=== PATIENT | male | born 1955 | race Caucasian/White ===

== ENCOUNTER → 2021-01-29 11:18 | Outpatient (REF) | payer MEDICARE, SELFPAY | LOC: ANHLAB 11:18 | PROVIDERS: Visit Provider Nurse Practitioner | DX: D03.21 Melanoma in situ of right ear and external auricular canal (principal) | CPT/HCPCS: 88305; 88342 ==

== ENCOUNTER → 2021-02-14 12:29 | Outpatient (REF) | payer MEDICARE, SELFPAY | LOC: ANHLAB 12:29 | PROVIDERS: Visit Provider Nurse Practitioner | DX: C43.21 Malignant melanoma of right ear and external auricular canal (principal); D49.2 Neoplasm of unspecified behavior of bone, soft tissue, and skin | CPT/HCPCS: 88305; 88342 ==

== ENCOUNTER → 2021-08-08 10:28 | Outpatient (REF) | payer MEDICARE, SELFPAY | LOC: ANHLAB 10:28 | PROVIDERS: Visit Provider Nurse Practitioner | DX: L57.0 Actinic keratosis (principal) | CPT/HCPCS: 88305 ==

== ENCOUNTER 2022-08-08 09:02 | Outpatient (CLI) | payer MEDICARE, SELFPAY ==
--- NOTE | ~2022-08-08 | CT_ITS ---
EXAMINATION: CT soft tissue neck w con DATE: 08/08/2022 10:10 INDICATION: Right cervical lymphadenopathy. TECHNIQUE: Computed tomography (CT) of the neck was performed with 75 mL Omnipaque-350 intravenous co ntrast. Automated exposure control and iterative reconstruction technique were employed. The dose-levi gth product was 690.22 mGy-cm. COMPARISON: None FINDINGS: Calcified left lung nodules and calcified left hilar lymph nodes are consistent with old gr anulomatous disease. There are no pathologically enlarged lymph nodes. There is 0% stenosis of the pr oximal internal carotid arteries relative to normal distal artery lumen diameters. There is mucosal t hickening in the paranasal sinuses. The mastoid air cells are normal. The orbits are normal. There is severe cervical spondylosis. IMPRESSION: 1. No cervical lymphadenopathy. Reviewed, dictated and finalized at location A. [facility]
[2022-08-08 10:00] LABS: Estimated Glomerular Filt Rate > 60
== END 2022-08-08 09:03 | disposition home or self-care (01) ==
LOC: ANHIMG 09:08
PROVIDERS: PCP Physician Assistant Medical; Visit Provider Physician Assistant Medical
DX: R59.0 Localized enlarged lymph nodes (principal)
CPT/HCPCS: 70491; Q9967

== ENCOUNTER 2022-09-02 07:00 | Outpatient (NON) | payer MEDICARE, SELFPAY | END 2022-09-02 07:01 | disposition home or self-care (01) | LOC: ANHLAB 09-03 11:51 | PROVIDERS: PCP Physician Assistant Medical; Visit Provider Nurse Practitioner | DX: L82.1 Other seborrheic keratosis (principal) | CPT/HCPCS: 88305 ==

== ENCOUNTER 2022-12-08 00:38 | Day surgery (SDC) | payer MEDICARE, SELFPAY ==
[2022-11-26 13:24] VITALS: BMI 34.4
--- NOTE | 2022-11-26 13:41 | PC.NURSE ---
Report to the Outpatient Waiting Room, entrance under the green pavilion located off [facility], at time __11:30AM on date __12/08/22 . Planned Procedure Time: ___1:30PM . Time changes happen often and if your time is changed the preop area will call you the afternoon before. - You and your visitor will be asked to self-screen and do not enter if you have any COVID symptoms. - Only one visitor is requested with a max of two and NO children visitors are allowed at this time. - The patient visitor may be requested to leave or wait in car when not with patient due to distancing restrictions. - A mask is optional within the hospital at this time. Patients may have clear liquids (water, carbonated beverages, clear teas, apple juice) until 3 hours prior to surgery with a maximum of 20 ounces. - No food from midnight until time of surgery - Infants may have breast milk until 4 hours before surgery, infant formula 6 hours prior to surgery. Take the following medications with a SIP of water the morning of surgery: ___NONE DO NOT STOP ANY OF YOUR OTHER PRESCRIPTION MEDICATIONS PRIOR TO SURGERY ?EXCEPT THE FOLLOWING Medications to discontinue per physician NONE Date to take last dose Please no make-up, nail welsh, hairspray, perfume, deodorant, or body powder the day of surgery. No jewelry (including any body piercings) or valuables the day of surgery, leave them at home. Please take a shower or bath the night before, or the morning of, surgery with an antibacterial soap. Wear comfortable, loose fitting clothing. Children are encouraged to wear pajamas. - Jewelry must be removed prior to entering the operating room. Rings and piercings that are not removed may be cut off. - The hospital will not accept responsibility for valuables. - Please leave all valuables, including medications, at home the day of surgery. If you are going home after surgery, a licensed frontload driver must drive you home. - NO public transportation without another adult if you receive anesthesia. - We recommend that an adult stay with you for 24 hours following discharge. - We also recommend that you do not drive, make important decision, drink alcoholic beverages, or take any drugs that were not prescribed by your health care provider for at least 24 hours after your discharge time. Follow any additional instructions given to you from your surgeon. If you or anyone in your household have experienced Covid symptoms in the past week, please notify your surgeon or the nurse liaison at the phone number below for possible testing. Telephone instructions given to _PATIENT___and asked if any additional questions and then verbalized understanding. Patient advised to call surgeon office or pre surgery nurse liaison [phone] if any additional questions.
[2022-12-08] VITALS (9 sets, daily range): BP systolic 98–149; BP diastolic 64–95; PULSE 59–79; RESP 12–19; TEMP 36.4–37.3; O2SAT 96–100
--- NOTE | 2022-12-08 08:37 | WPDANESEPPF ---
Anes - Initial Pre Proc Eval Procedure: Operation Date: 12/08/22 13:30 Proposed Procedures p Excisional Biopsy Right Posterior Neck Mass - Gayathri Galvan MD Date/Time: 12/08/22 08:37 Surgeon: Gayathri Galvan MD Pre Op Diagnosis: right posterior neck mass Patient Data Age: 67 Gender: M Height: 1.8 m Weight: 112 kg Allergies Allergy/AdvReac Type Severity Reaction Status Date / Time hazelnut Allergy Severe Anaphylaxis Verified 12/08/22 08:43 Home Medications Medication Instructions Recorded Confirmed Type omeprazole 20 mg capsule,delayed 20 mg PO DAILY 11/07/21 11/26/22 History release montelukast 10 mg tablet 10 mg PO QHS #90 tabs 11/21/22 11/26/22 Rx Patient hx anesthesia problems: none Family hx anesthesia problems: none Results Review: All pre-operative results and documents have been reviewed as part of the pre-operative evaluation. 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 Obesity Skin cancer screening Skin neoplasm Family History Family History (Updated 11/25/22 @ 09:47 by Ivon Mendoza) Father Cancer Social History Social History Smoking packs per day: 0.5 Smoking cigarettes per day: 10.0 Years smoked: 15 Smoking pack-years: 7.50 Smoking status: Former smoker Tobacco type: cigarettes Smoking end date: 02/28/05 Alcohol intake: current Drinks per week: 8 Substance use: never Substance use type: does not use Lack of Transportation: No Lack of Food: Never True Current Housing: I Have Housing Concerned About Future Housing: No Difficulty Paying Gas/Electric Bills: No Difficulty Paying for Meds: No Currently Unemployed: No Difficulty w/ Childcare or Family Care: No Living arrangements: alone Occupation/Education: retired Gender identity (if verbalized by the patient): Male Spiritual care concerns: No Anes - Eval Final PreProcedure Day of Procedure 12/08/22 08:37 Patient weight: obese Heart: regular rate and rhythm Lungs: clear to auscultation Airway: Mallampati scale class II Neurological: alert and oriented Last oral intake: >/= 8 hours ASA classification: III Emergent: no Anesthetic plan: proceed Anesthesia type and monitoring: general ETT and standard monitoring Results Review: All pre-operative results and documents have been reviewed as part of the pre-operative evaluation. Informed Consent: The patient's anesthetic plan and its attendant risks and benefits were discussed with the patient/family/POA. Questions were solicited and answers provided to the satisfaction of the patient/family/POA.
[2022-12-08] MEDS: LACTATED RINGERS 1,000 ML 30 ML IV CONT (11:45)
--- NOTE | 2022-12-08 12:06 | WPDHPUPDATE1 ---
History and Physical Update Update Date/Time: 12/08/22 12:06 History and Physical has been reviewed, including an updated exam of the patient. There are NO changes in the patient's condition. Risks, benefits, and alternatives have been discussed and questions answered. Patient agrees to proceed with procedure.
[2022-12-08] MEDS: ceFAZolin 2 GM/D5W 50 ML 2 GM/50 ML BAG IVPB (13:10)
[2022-12-08] MEDS: BUPIVACAINE/EPINEPHRINE 0.5% 50 ML VIAL 20 ML INFILTRATE (13:30)
--- NOTE | 2022-12-08 14:04 | P.OP_ITS ---
Procedure Note - Detailed Date of Procedure 12/08/22 Pre-op Diagnosis right neck mass Post-op Diagnosis Same Procedure Performed excisional biopsy right neck mass, most consistent with necrotic lymph node Surgeon Gayathri Galvan MD Anesthesia General and Local Indications 67-year-old male presenting to the office with a right neck mass. Patient reports the mass had been slowly enlarging over the last 4 months. Previous imaging did not show enlarged cervical lymph nodes. Findings Mass underneath the strap muscles in right neck, most consistent with necrotic appearing lymph node, measuring approximately 3 x 3 cm Description of Procedure The patient was taken to the operating room placed in the supine position. After adequate induction of general anesthesia, the patient was prepped and draped in the normal sterile fashion. A time-out was then done to verify the patient's identity, as well as the procedure being performed. Began by localizing the area in and around this mass in the right neck. I then made a incision over the mass following the lines of Langerhans. This was taken down into the subcutaneous tissue. I then was able to bluntly dissect the strap muscles off this mass, the mass was posterior to the strap muscles. This mass was noted to be a friable, necrotic appearing probable lymph node. The mass measured approximately 3 x 3 cm. I was able to excise the mass in full, in cluding careful dissection around the pedicle. Once the mass was completely excised, it was sent to pathology for further review. No other obvious pathology was noted in the right neck. The area is copiously irrigated and hemostasis was gained with Bovie cautery. I then closed the subcutaneous tissue with 3-0 Vicryl suture. The skin was closed with 4-0 Monocryl subcuticular suture. The patient was extubated in the operating room postoperatively and will be transferred to the recovery room in stable condition. Estimated Blood Loss 5 Drains No Packing No Pathology Yes Complications No immediate complications Condition Stable Disposition PACU [facility] Billing Surgery - Charge Forward: Surgery Billing
--- NOTE | 2022-12-08 14:19 | SUR.PHASEI ---
1419: Simple mask removed.
== END 2022-12-08 15:44 | disposition home or self-care (01) ==
PROVIDERS: PCP Physician Assistant Medical; Visit Provider Surgery
PROC: (CPT 38510; principal; 2022-12-08 13:30)
DX: C77.0 Secondary and unspecified malignant neoplasm of lymph nodes of head, face and neck (principal); Z85.820 Personal history of malignant melanoma of skin; K20.0 Eosinophilic esophagitis; Z87.891 Personal history of nicotine dependence; E66.9 Obesity, unspecified; Z68.33 Body mass index [BMI] 33.0-33.9, adult
CPT/HCPCS: 38510; 88304; 88342; J0690; J1100; J2250; J2405; J2704; J3010; J7120

== ENCOUNTER 2022-12-25 07:58 | Outpatient (CLI) | payer MEDICARE, SELFPAY ==
--- NOTE | ~2022-12-25 | PE_ITS ---
EXAMINATION: PET whole body melanoma DATE: 12/25/2022 09:55 INDICATION: Malignant melanoma of the right upper limb TECHNIQUE: Blood glucose level was 101 mg/dL. 9.132 mCi of 18-fluorodeoxyglucose (18-FDG) was adminis tered i.v. Low dose computed tomography (CT) images were acquired from the base of the brain to the p roximal thighs for attenuation correction and anatomic localization. Positron emission tomography (PE T) images were acquired in the same distribution beginning 54 minutes after injection. Images includi ng fused PET/CT images were reconstructed in axial, coronal, and sagittal planes. Automated exposure control technique was employed. The dose-length product was 1487.21mGy-cm. COMPARISON: None FINDINGS: Head/neck: There is symmetric increased activity in the nasal and oral cavities, palatine tonsils, parotid gland s, submandibular glands, laryngeal muscles and ocular muscles without CT correlate, likely physiolog ic. There is a small focus of increased FDG activity with maximal SUV of 6.7 along a skin invaginatio n at the right side of the base of the neck positioned along the posterior margin of the right sterno cleidomastoideus muscle reportedly at the site of a recent excisional biopsy of a 3 cm necrotic lymph node biopsy-proven for metastatic melanoma. No pathologically enlarged cervical lymphadenopathy or o ther suspicious foci of increased FDG uptake in the visualized head or neck. Chest: Small calcified nodules along the right minor fissure and at the lingula consistent with old granulom atous disease. Mild dependent atelectasis in bilateral lower lobes. No other suspicious pulmonary nod ules, pneumonia, pulmonary edema or pleural effusion. Heart size is normal. No pericardial effusion. 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 No pathologically enlarged or FDG avid thoracic lymphadenopathy. Abdomen/pelvis/proximal thighs: Physiologic renal accumulation and excretion of FDG activity in the kidneys, bladder and along portio ns of ureters. Normal degree and heterogenous pattern of increased uptake throughout the liver withou t radiologic correlate or dominant FDG avid lesion. The gallbladder, pancreas and bilateral adrenal g lands are normal. A few small splenic calcific lesions consistent with old granulomatous disease. Mil d uptake scattered throughout the bowels without radiologic correlate, also likely physiologic. Julia l appendix. No other abnormal foci of increased FDG uptake or pathologically enlarged lymphadenopathy in the abdomen, pelvis or proximal thighs. Musculoskeletal: There is a tiny focus of mild increased FDG uptake with maximal SUV of 5.1 in the soft tissues of the distal right forearm between the distal right radius and ulna which is without radiologic correlate, potentially lymphatic accumulation of extravasated activity from the site of injection at the right hand. No abnormal soft tissue masses or suspicious lytic, blastic or FDG avid bone lesions. Mild upta ke overlying the right greater trochanter consistent with trochanteric bursitis. IMPRESSION: 1. Small focus of mild increased uptake at the lateral base of the right neck at the site of resectio n of a pathology proven metastatic melanoma most likely reflecting physiologic response to the excisi onal biopsy. Would recommend continued clinical and/or radiologic follow-up to exclude residual disea se. No other lesions suspicious for metastatic disease. Reviewed, dictated and finalized at location A. IMPRESSION: 1. Small focus of mild increased uptake at the lateral base of the right neck a t the site of resection of a pathology proven metastatic melanoma most likely r eflecting physiologic response to the excisional biopsy. Would jim
[2022-12-25 08:20] LABS: Glucose Point of Care 101 mg/dl (65-105)
== END 2022-12-25 07:59 | disposition home or self-care (01) ==
PROVIDERS: PCP Physician Assistant Medical; Visit Provider Surgery
DX: C43.61 Malignant melanoma of right upper limb, including shoulder (principal); C43.9 Malignant melanoma of skin, unspecified
CPT/HCPCS: 78816; A9552

== ENCOUNTER 2023-03-17 09:00 | Outpatient (NON) | payer MEDICARE, SELFPAY | END 2023-03-17 09:01 | disposition home or self-care (01) | LOC: ANHLAB 03-18 14:13 | PROVIDERS: PCP Physician Assistant Medical; Visit Provider Nurse Practitioner | DX: C43.72 Malignant melanoma of left lower limb, including hip (principal) | CPT/HCPCS: 88305; 88342 ==

== ENCOUNTER 2023-04-06 13:03 | Outpatient (NON) | payer MEDICARE, SELFPAY | END 2023-04-06 13:04 | disposition home or self-care (01) | PROVIDERS: PCP Physician Assistant Medical; Visit Provider Nurse Practitioner | DX: C43.72 Malignant melanoma of left lower limb, including hip (principal) | CPT/HCPCS: 88305; 88342 ==

== ENCOUNTER 2023-06-23 07:00 | Outpatient (NON) | payer MEDICARE, SELFPAY | END 2023-06-23 07:01 | disposition home or self-care (01) | LOC: ANHLAB 06-24 15:34 | PROVIDERS: PCP Physician Assistant Medical; Visit Provider Nurse Practitioner | DX: D48.5 Neoplasm of uncertain behavior of skin (principal) | CPT/HCPCS: 88305; 88342 ==

== ENCOUNTER 2023-07-02 14:11 | Outpatient (NON) | payer MEDICARE, SELFPAY | END 2023-07-02 14:12 | disposition home or self-care (01) | LOC: ANHLAB 14:14 | PROVIDERS: PCP Physician Assistant Medical; Visit Provider Nurse Practitioner | DX: L57.0 Actinic keratosis (principal) | CPT/HCPCS: 88305 ==